=== PATIENT | female | born 1960 | race Caucasian/White ===

== ENCOUNTER 2023-12-13 14:48 | Outpatient (OUT) | payer BC, SELFPAY ==
[2023-12-13 15:35] LABS: Basophils Absolute Auto 0.1 10^3/uL (0.0-0.1); Basophils Percent Auto 0.9 % (0.2-2.0); Eosinophils Absolute Auto 0.2 10^3/uL (0.0-0.7); Eosinophils Percent Auto 2.6 % (0.9-7.0); Hematocrit 44.5 % (36.0-48.0); Hemoglobin 14.6 g/dL (12.0-16.0); Immature Granulocytes Abs Auto 0.01 10^3/uL (0.00-0.03); Immature Granulocytes Pct Auto 0.1 % (0.0-0.5); Lymphocytes Absolute Auto 2.6 10^3/uL (1.2-3.8); Lymphocytes Percent Auto 32.6 % (20.5-60.0); Mean Corpuscular HGB Conc 32.8 g/dL (29.9-35.2); Mean Corpuscular Volume 85.4 fL (81.0-99.0); Mean Platelet Volume 10.4 fL (9.5-13.5); Monocytes Absolute Auto 0.6 10^3/uL (0.3-0.8); Monocytes Percent Auto 7.3 % (1.7-12.0); Neutrophils Absolute Auto 4.4 10^3/uL (1.4-6.5); Neutrophils Percent Auto 56.5 % (43.0-75.0); Platelet Count 228 10^3/uL (150-450); Red Blood Count 5.21 10^6/uL (4.20-5.40); White Blood Count 7.8 10^3/uL (4.0-11.0)
[2023-12-13 15:40] LABS: Estimated Average Glucose 114 mg/dL; Glycohemoglobin A1C 5.6 % (4.5-6.2)
[2023-12-13 16:08] LABS: Alanine Aminotransferase 22 U/L (14-59); Albumin Level 3.5 g/dL (3.4-5.0); Alkaline Phosphatase 73 U/L (46-116); Anion Gap 13.4; Aspartate Amino Transferase 17 U/L (15-37); BUN Creatinine Ratio 21.1; Bilirubin Total 0.4 mg/dL (0.2-1.0); Calcium 9.3 mg/dL (8.5-10.1); Carbon Dioxide 25.8 mmol/L (21.0-32.0); Chloride 106 mmol/L (98-107); Chol HDL Ratio 2.8; Cholesterol 188 mg/dL (<=200); Estimated GFR (African America >60 (>=60); Estimated GFR (Non-African Ame >60 (>=60); Free T3 2.55 pg/mL (2.18-3.98); Globulin 3.4 g/dL; Glucose 78 mg/dL (74-106); HDL Cholesterol 67 mg/dL (40-60); Potassium 4.2 mmol/L (3.5-5.1); Sodium 141 mmol/L (136-145); Thyroid Stimulating Hormone 3.851 uIU/mL (0.358-3.740); Total Protein 6.9 g/dL (6.4-8.2); Triglycerides 53 mg/dL (<=150); VLDL CHOLESTEROL 10.6 mg/dL
[2023-12-15 12:11] LABS: Insulin 8.3 uIU/mL (2.6-24.9)
== END 2023-12-13 14:49 | disposition home or self-care (01) ==
LOC: LAB 14:51
PROVIDERS: PCP Family Medicine; Visit Provider Family Medicine
DX: Z00.00 Encounter for general adult medical examination without abnormal findings (principal); E78.5 Hyperlipidemia, unspecified; R73.09 Other abnormal glucose; D64.9 Anemia, unspecified
CPT/HCPCS: 36415; 80053; 80061; 83036; 83525; 83540; 84436; 84443; 84481; 85025

== ENCOUNTER 2023-12-22 10:40 | Outpatient (OUT) | payer BC, SELFPAY ==
--- OUTSIDE RECORDS SUMMARY | 2023-12-22 10:42 | XMS_ITS | CCD ---
Author Organization [facility] Care Team Providers Care Sales Project Engineer Name Role Phone HORTON ., DR GIANNA Benitez Admitting Unavailable HORTON ., DR GIANNA Benitez Attending Unavailable HOY ., DR XIE Primary Care Unavailable HOY ., DR XIE Consulting Unavailable HORTON ., DR GIANNA Benitez Consulting Unavailable HORTON ., DR GIANNA Benitez Admitting Unavailable HORTON ., DR GIANNA Benitez Attending Unavailable HOY ., DR XIE Primary Care Unavailable HORTON ., DR GIANNA Benitez Consulting Unavailable HORTON ., DR GIANNA Benitez Admitting Unavailable HORTON ., DR GIANNA Benitez Attending Unavailable HOY ., DR XIE Primary Care Unavailable TELLEZ ., [employer] Consulting Unavailable HORTON ., DR GIANNA Benitez Admitting Unavailable HORTON ., DR GIANNA Benitez Attending Unavailable HOY ., DR XIE Primary Care Unavailable HORTON ., DR GIANNA Benitez Consulting Unavailable HORTON ., DR GIANNA Benitez Admitting Unavailable HORTON ., DR GIANNA Benitez Attending Unavailable HOY ., DR XIE Primary Care Unavailable TELLEZ ., [employer] Consulting Unavailable HOY ., DR XIE Admitting Unavailable HOY ., DR XIE Attending Unavailable HOY ., DR XIE Primary Care Unavailable HOY ., DR XIE Consulting Unavailable HOY ., DR XIE Primary Care Unavailable FLOWER ENCARNACION Admitting Unavailable FLOWER ENCARNACION Attending Unavailable FLOWER ENCARNACION Consulting Unavailable ANTONY GRIGSBY Consulting Unavailable HORTON ., DR GIANNA Benitez Admitting Unavailable HORTON ., DR GIANNA Benitez Attending Unavailable HOY ., DR XIE Primary Care Unavailable TELLEZ ., [employer] Consulting Unavailable Problems Active Problems Problem Classification Problem Date Documented Da te Episodic/Chronic Other upper respiratory infections (1 source) Acute sinusitis, unspecified; Translations: [ACUTE SINUSITIS UNSPECIFIED] Onset: 12-05-2022 Episodic Spondylosis; intervertebral disc disorders; other back problems (5 sources) Spondylosis without myelopathy or radiculopathy, cervical region; Translations: [Other cervical disc degeneration, unspecified cervical region] Onset: 05-27-2022 Chronic Unclassified (4 sources) CONTACT W/AND (SUSP) EXPOS COVID-19; Translations: [CONTACT W/AND (SUSP) EXPOS COVID-19] Onset: 12-14-2021 Unclassified (2 sources) COUGH, UNSPECIFIED; Translations: [COUGH, UNSPECIFIED] Onset: 12-14-2021 Past or Other Problems Problem Classification Problem Date Documented Da te Episodic/Chronic Influenza (1 source) Influenza due to other identified influenza virus with other respiratory manifestations; Translations: [FLU D/T OTH ID FLU VIR OTH RSP MANF] Onset: 12-14-2021 Episodic Spondylosis; intervertebral disc disorders; other back problems (4 sources) Spinal stenosis, cervical region; Translations: [Cervicalgia] Onset: 01-04-2022 Episodic Unclassified (1 source) CONTACT W/AND (SUSP) EXPOS COVID-19; Translations: [CONTACT W/AND (SUSP) EXPOS COVID-19] Onset: 12-01-2022 Unclassified (1 source) COUGH, UNSPECIFIED; Translations: [COUGH, UNSPECIFIED] Onset: 12-13-2021 Results Test Name Value Interpretation Reference Range Facil it Physician Referralon 024 Physician Referral [id number] IFF Normal [facility] Physician Referralon 024 Physician Referral [id number] 302 [id number] IFF Normal [facility]on SARS-CoV-2 (COVID-19) RNA JAIMIE+probe Ql (Unsp spec) Not detected Normal NOT DETECTED [facility] Comment on above: Result Comment: When diagnostic testing is negative, the possibility of a false negative should be considered in the context of a patient's recent exposures and the presence of clinical signs and symptoms consistent with SARS-CoV-2. This test is not yet approved or cleared by the [place] FDA. When there are no FDA-approved or cleared tests available, and other criteria are met, FDA can make tests available under an emergency access mechanism called an Emergency Use Authorization (EUA). The EUA for this test is supported by the [place] of Health and Human Service's declaration that circumstances exist to justify the emergency use of in vitro diagnostics for the detection and/or diagnosis of the virus that causes COVID-19. This EUA will remain in effect for the duration of the COVID-19 declaration justifying emergency of IVDs, unless it is terminated or revoked by the FDA (after which the test may no longer be used). Performed By: #### C VDTB #### [facility] [address] [place] [address] Dr. Joss De La Rosa CBC AUTO DIFFon 12-13-2021 BASO # 0.0 103/ul Normal 0.0-0.1 [facility] Comment on above: Performed By: #### C BC #### [facility] [address] [place] [address] Dr. Joss De La Rosa Basophils/100 WBC (Bld) 0.9 % Normal 0.2-2.0 [facility] Comment on above: Performed By: #### C BC #### [facility] [address] [place] [address] Dr. Joss De La Rosa EO # 0.2 103/ul Normal 0.0-0.7 [facility] Comment on above: Performed By: #### C BC #### [facility] [address] [place] [address] Dr. Joss De La Rosa Eosinophils/100 WBC (Bld) 4.4 % Normal 0.9-7.0 [facility] Comment on above: Performed By: #### C BC #### [facility] [address] [place] [address] Dr. Joss De La Rosa Erythrocyte distribution width (RBC) [Ratio] 13.1 % Normal 11.0-15.0 [facility] Comment on above: Performed By: #### C BC #### [facility] [address] [place] [address] Dr. Joss De La Rosa Hematocrit (Bld) [Volume fraction] 44.9 % Normal 36.0-48.0 [facility] Comment on above: Performed By: #### C BC #### [facility] [address] [place] [address] Dr. Joss De La Rosa Hemoglobin (Bld) [Mass/Vol] 14.6 g/dL Normal 12.0-16.0 [facility] Comment on above: Performed By: #### C BC #### [facility] [address] [place] [address] Dr. Joss De La Rosa IG # 0.00 10e3/ul Normal 0.00-0.03 [facility] Comment on above: Performed By: #### C BC #### [facility] [address] [place] [address] Dr. Joss De La Rosa IG % 0.0 % Normal 0.0-0.5 [facility] Comment on above: Performed By: #### C BC #### [facility] [address] [place] [address] Dr. Joss De La Rosa LYMPH # 1.6 103/ul Normal 1.2-3.8 [facility] Comment on above: Performed By: #### C BC #### [facility] [address] [place] [address] Dr. Joss De La Rosa Lymphocytes/100 WBC (Bld) 37.1 % Normal 20.5-60.0 [facility] Comment on above: Performed By: #### C BC #### [facility] [address] [place] [address] Dr. Joss De La Rosa MANUAL DIFF REQ NO Normal [facility] Comment on above: Performed By: #### C BC #### [facility] [address] [place] [address] Dr. Joss De La Rosa MCH (RBC) [Entitic mass] 27.8 pg Normal 26.7-34.0 [facility] Comment on above: Performed By: #### C BC #### [facility] [address] [place] [address] Dr. Joss De La Rosa MCHC (RBC) [Mass/Vol] 32.5 g/dL Normal 29.9-35.2 [facility] Comment on above: Performed By: #### C BC #### [facility] [address] [place] [address] Dr. Joss De La Rosa MCV (RBC) [Entitic vol] 85.5 fL Normal 81.0-99.0 [facility] Comment on above: Performed By: #### C BC #### [facility] [address] [place] [address] Dr. Joss De La Rosa MONO # 0.5 103/ul Normal 0.3-0.8 [facility] Comment on above: Performed By: #### C BC #### [facility] [address] [place] [address] Dr. Joss De La Rosa Monocytes/100 WBC (Bld) 11.8 % Normal 1.7-12.0 [facility] Comment on above: Performed By: #### C BC #### [facility] [address] [place] [address] Dr. Joss De La Rosa NEUT # 2.0 103/ul Normal 1.4-6.5 [facility] Comment on above: Performed By: #### C BC #### [facility] [address] [place] [address] Dr. Joss De La Rosa Neutrophils/100 WBC (Bld) 45.8 % Normal 43.0-75.0 [facility] Comment on above: Performed By: #### C BC #### [facility] [address] [place] [address] Dr. Joss De La Rosa Platelet mean volume (Bld) [Entitic vol] 10.2 fL Normal 9.5-13.5 [facility] Comment on above: Performed By: #### C BC #### [facility] [address] [place] [address] Dr. Joss De La Rosa PLT 237 103/ul Normal 150-450 [facility] Comment on above: Performed By: #### C BC #### [facility] [address] [place] [address] Dr. Joss De La Rosa RBC 5.25 106/ul Normal 4.20-5.40 [facility] Comment on above: Performed By: #### C BC #### [facility] [address] [place] [address] Dr. Joss De La Rosa WBC 4.3 103/ul Normal 4.0-11.0 [facility] Comment on above: Performed By: #### C BC #### [facility] [address] [place] [address] Dr. Joss De La Rosa Covid-19 PCR ([facility])on 12-01 SARS-CoV-2 (COVID-19) RNA JAIMIE+probe Ql (Unsp spec) Not detected Normal NOT DETECTED [facility] Comment on above: Result Comment: This test is not yet approved or cleared by the [place] FDA. When there are no FDA-approved or cleared tests available, and other criteria are met, FDA can make tests available under an emergency access mechanism called an Emergency Use Authorization (EUA). The EUA for this test is supported by the [place] of Health and Human Service's (HHS's) declaration that circumstances exist to justify the emergency use of in vitro diagnostics for the detection and/or diagnosis of the virus that causes COVID-19. This EUA will remain in effect (meaning this test can be used) for the duration of the COVID-19 declaration justifying emergency of IVDs, unless it is terminated or revoked by FDA (after which the test may no longer be used). When diagnostic testing is negative, the possibility of a false negative should be considered in the context of a patient's recent exposures and the presence of clinical signs and symptoms consistent with SARS-CoV-2. Performed By: #### C VDTB #### [facility] [address] [place] [address] Dr. Joss De La Rosa INFLUENZA A AND B AGon 12-13 [facility] SEE BELOW Normal [facility] Comment on above: Result Comment: Nega tive for Flu B protein antigen. Infection due to Flu B cannot be ruled out. Flu B antigen in the sample may be below the detection limit of the test. Performed By: #### I NFLUAB #### [facility] [address] [place] [address] Dr. Joss De La Rosa INFLUENZA A AG Positive Abnormal NEGATIVE SEE COMMENT [facility] Comment on above: Performed By: #### I NFLUAB #### [facility] [address] [place] [address] Dr. Joss De La Rosa INFLUENZA B AG Negative Normal NEGATIVE SEE COMMENT [facility] Comment on above: Performed By: #### I NFLUAB #### [facility] [address] [address] [address] Joss De La Rosa INFLUPOSH SEE BELOW Normal [facility] Comment on above: Result Comment: NOTE : Live attenuated influenzae vaccine viruses can cause a positive result for a rapid influenza diagnostic test if administered up to 7 days prior to rapid testing. Performed By: #### I NFLUAB #### [facility] [address] [address] [address] Joss De La Rosa INTERNAL CONTROLS Within Normal Limits Normal Wi thin Normal Limits [facility] Comment on above: Performed By: #### I NFLUAB #### [facility] [address] [address] [address] Joss De La Rosa PROF 14(COMP METB)on 022 Albumin [Mass/Vol] 3.3 g/dL Critically low 3.5-5.0 [facility] Comment on above: Performed By: #### C MP #### [facility] [address] [place] [address] Dr. Joss De La Rosa Albumin/Globulin [Mass ratio] 1.0 {ratio} Normal [facility] Comment on above: Performed By: #### C MP #### [facility] [address] [address] [address] Joss De La Rosa ALP [Catalytic activity/Vol] 69 U/L Normal 38-126 [facility] Comment on above: Performed By: #### C MP #### [facility] [address] [address] [address] Joss De La Rosa ALT [Catalytic activity/Vol] 26 U/L Normal 9-52 [facility] Comment on above: Performed By: #### C MP #### [facility] [address] [address] [address] Joss De La Rosa Anion gap [Moles/Vol] 12.0 mmol/L Normal [facility] Comment on above: Performed By: #### C MP #### [facility] [address] [place] [address] Dr. Joss De La Rosa AST [Catalytic activity/Vol] 15 U/L Normal 14-36 [facility] Comment on above: Performed By: #### C MP #### [facility] [address] [address] [address] Joss De La Rosa Bilirubin [Mass/Vol] 0.2 mg/dL Normal 0.2-1.3 [facility] Comment on above: Performed By: #### C MP #### [facility] [address] [address] [address] Joss De La Rosa Calcium [Mass/Vol] 8.3 mg/dL Critically low 8.4-10.2 [facility] Comment on above: Performed By: #### C MP #### [facility] [address] [address] [address] Joss De La Rosa Chloride [Moles/Vol] 102 mmol/L Normal 98-107 [facility] Comment on above: Performed By: #### C MP #### [facility] [address] [address] [address] Joss De La Rosa CO2 [Moles/Vol] 27.4 mmol/L Normal 22.0-30.0 [facility] Comment on above: Performed By: #### C MP #### [facility] [address] [address] [address] Joss De La Rosa Creatinine [Mass/Vol] 0.97 mg/dL Normal 0.52-1.04 [facility] Comment on above: Performed By: #### C MP #### [facility] [address] [address] [address] Joss De La Rosa EGFR-AF DOMINICAN >60 Normal >=60 [facility] Comment on above: Performed By: #### C MP #### [facility] [address] [address] [address] Joss De La Rosa EGFR-NON AF DOMINICAN 59 mL/min/1.73m2 Critically low >=60 [facility] Comment on above: Performed By: #### C MP #### [facility] [address] [address] [address] Joss De La Rosa Globulin (S) [Mass/Vol] 3.4 g/dL Normal [facility] Comment on above: Performed By: #### C MP #### [facility] [address] [address] [address] Joss De La Rosa Glucose [Mass/Vol] 105 mg/dL Normal 74-106 [facility] Comment on above: Performed By: #### C MP #### [facility] [address] [address] [address] Joss De La Rosa Potassium [Moles/Vol] 3.4 mmol/L Normal 3.4-5.0 [facility] Comment on above: Performed By: #### C MP #### [facility] [address] [address] [address] Joss De La Rosa Protein [Mass/Vol] 6.7 g/dL Normal 6.1-8.2 [facility] Comment on above: Performed By: #### C MP #### [facility] [address] [address] [address] Joss De La Rosa Sodium [Moles/Vol] 138 mmol/L Normal 137-145 [facility] Comment on above: Performed By: #### C MP #### [facility] [address] [address] [address] Joss De La Rosa Urea nitrogen [Mass/Vol] 15.0 mg/dL Normal 7.0-17.0 [facility] Comment on above: Performed By: #### C MP #### [facility] [address] [address] [address] Joss De La Rosa Urea nitrogen/Creatinin e [Mass ratio] 15.5 mg/mg Normal [facility] Comment on above: Performed By: #### C MP #### [facility] [address] [address] [address] Joss De La Rosa XR CHEST 1 Von 12-13-2021 XR CHEST 1 V EXAM: XR CHEST 1 V HISTORY: COUGH COMPARISON: X-ray performed . TECHNIQUE: AP portable upright view of the chest is obtained. FINDINGS: The cardiomediastinal silhouette is nonenlarged. Pulmonary vascular markings are within normal limits. There is no focal airspace consolidation. The costophrenic angles are clear. No pneumothorax. The osseous structures appear grossly intact. IMPRESSION: No acute cardiopulmonary process. Electronically authenticated by: ANTONY GRIGSBY Date: 2021-12-13 03:22 Normal [facility] Encounters Encounter Date Encounter Type Care Provider Facility Start: 12-12-2023 ambulatory Facility:[facility] Start: 12-01-2022 End: 12-01-[address] ANNE-MARIE SOUZA . Facility:[facility] Start: 05-27-2022 End: 05-28-[address] GIANNA HORTON . Facility:[facility] Start: 05-04-2022 End: 05-04-[address] GIANNA HORTON . Facility:[facility] Start: 04-13-2022 End: 04-14-[address] GIANNA HORTON . Facility:[facility] Start: 02-04-[address] GIANNA HORTON . Faci lity:[facility] Start: 01-19-[address] GIANNA HORTON . Faci lity:[facility] Start: 12-31-2021 End: 01-01-[address] GIANNA HORTON . Facility:[facility] Start: 12-13-2021 End: 12-13-[address] ANNE-MARIE SOUZA . Facility:[facility] Payers Date Payer Category Payer Unknown [id number] 1960 Unknown [id number] 2.16.84 [id number] 1960 Unknown [id number] 2.16.84 [id number] 1960 Unknown [id number] 2.16.84 [id number] 1960 Unknown [id number] 2.16.84 [id number] 1960 Unknown [id number] 2.16.84 [id number] 1962 Unknown [id number] 2.16.84 [id number] 1962 Unknown [id number] 2.16.84 [id number] 1962 Unknown [id number] 2.16.84 [id number] 1962 Unknown [id number] 2.16.8 [id number] 1959 Unknown [id number] Consultation note 05-27-2022 Note Date & Type Note Facility 05-27-2022 Note CONSULTATION CONSULTATION DATE: 05/27/2022 HISTORY OF PRESENT ILLNESS: This is a pleasant, 61-year-old female returning to the clinic status post #1 bilateral MBB of C5, C6 and C7, T1 completed on 05/04/2022. This afforded her 90% relief for one day and 80% relief for two weeks following. 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 Today, she rates her pain 2/10, describes it as intermittent, stabbing depending on position. Twisting, turning, pushing, pulling, bending and lifting aggravate her pain. She currently uses a menthol heat rub and a heating pad p.r.n. when her activity is increased. She denies any vasomotor changes. Patient's REVIEW OF SYSTEMS / PAST MEDICAL HISTORY / ALLERGIES and IMAGES have been reviewed and they are noted on the chart. PHYSICAL EXAM: VITAL SIGNS: Blood pressure 175/95, heart rate is 71. Temperature is 97.9. She is 5'6 , weighs 125 kg. GENERAL APPEARANCE: Pleasant, appropriate, in no acute distress. FOCUSED EXAM - NECK: Range of motion is guarded in lateral rotation and flexion/extension. Reproduction of spinal axial pain to direct compression along the posterior elements of the cervical facets of C5, C6 and C7, T1. Fullness palpated as well, indicative of facet arthropathy, cervical spondylosis. Trapezius muscles are taut but non-spasmodic. MUSCULOSKELETAL: Motor is intact to bilateral upper extremities, 4/5. No vasomotor weakness noted. Muscle tone is good. NEUROLOGICAL: +2 bilateral brachioradialis and triceps reflexes. Radicular sensory is intact. IMPRESSION: Cervical spondylosis, cervical degenerative disc disease, cervical spinal canal stenosis. PLAN: We will move forward to authorize #2 bilateral MBB of C5, C6 and C7, T1. Education was given regarding starting a multivitamin in addition to magnesium glycinate 400 mg daily. She will get a U-Tox in the office today. Patient states her tramadol use is intermittent; therefore, for her next refill, we will dispense it a daily p.r.n. 50 mg. Patient is agreement with the plan of care, would like to move forward. She will be followed up in the office post procedure. [facility] Consultation note 05-27-2022 Note Date & Type Note Facility 05-27-2022 Note PAIN MANAGEMENT CONS ULTATION CONSULTATION DATE: 05/27/2022 ADDENDUM FOR NECK EXAM: At rest, the patient has 2 out of 10 pain with activity. Her pain goes to a 7 out of 10 with twisting, pushing, pulling, lifting, bending and physical activity aggravate her pain. Range of motion is guarded in lateral rotation and flexion/extension. Reproduction of spinoaxial pain noted to direct palpation over the lower cervical facets, fullness is palpated, indicative of ill facet arthropathy, cervical spondylosis of C5, C6 and C7, T1. Trachea is midline. Cervical, trapezius and splenius capitis muscles are taut but non-spasmodic. PLAN: The patient would greatly benefit from progressing to a #2 bilateral MBB of C5, C6 and C7, T1 at this time with the hopes of completing the rhizotomy series. [facility] Consultation note 04-13-2022 Note Date & Type Note Facility 04-13-2022 Note CONSULTATION CONSULTATION DATE: 04/13/2022 CHIEF COMPLAINT: Cervical pain. HISTORY OF PRESENT ILLNESS: This is a 61-year-old female who was remotely seen in the Pain Clinic initially in November of 2021. The patient had attended physical therapy, cervical traction, and was followed up in office a month later. At that time, the patient was scheduled to have cervical medial branch block for diagnostic purposes, under fluoroscopy. The patient has an MRI which shows multiple bulging discs and cervical spondylosis, as stated in the past. The patient, unfortunately, was denied treatment by Jenny, stating that I was not participating in their insurance, which was incorrect. This has since then been clarified. The patient reports her pain at an 8/10; a sharp, shooting, tingling pain. Activity such as twisting, pushing, lying down, housework, lifting, ADLs, activities aggravate the patient's pain. Heat mitigates the patient's pain. The patient was performing cervical traction; however, recently has moved in with her parents to help take care of them. 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 The patient takes Motrin on a p.r.n. basis, depending on her activity level. The patient's PAST MEDICAL HISTORY / SURGICAL HISTORY / REVIEW OF SYSTEMS are noted on the chart, along with the MEDICATION LIST / ALLERGIES and the MRI which was re-reviewed in office today. PHYSICAL EXAMINATION: GENERAL: Upon physical examination, this is a pleasant, cooperative female who has intermittent grimacing pain and guarded movements. VITAL SIGN: The patient's blood pressure is 154/87 with a heart rate of 80. At a height of 5'6 , the patient weighs 125 kg. FOCUSED EVALUATION: The patient had significant jump response to extension, compression, direct palpation along the posterior elements along her cervical spine. The patient has arthrosis that is defined on the cervical MRI. UPPER EXTREMITIES: No clubbing or cyanosis. MUSCULOSKELETAL: Intact in the upper extremity at 5/5. Rn Traveling strength is maintained. Interossei are maintained. NEUROLOGICALLY: No hypoesthesia is noted on to the patient. PSYCHIATRICALLY: The patient is distraught and is stressed. IMPRESSION: Current working diagnosis on the patient is multiple bulging cervical discs, cervical spinal canal stenosis, cervical spondylosis at C5-6 and C7-T1 facet, cervical muscle spasm. PLAN: The patient is to continue with the heat rub to her cervical spine. The patient was encouraged to restart the home cervical traction. In the interim, the patient will be re-prescribed baclofen 10 mg p.o. daily, along with tramadol 50 mg up to b.i.d. a day. The patient will be rescheduled for diagnostic cervical medial branch block at the level of C5-C6 and C7-C8 to cover the C7-T1 facet. The patient understands and would like to proceed. CC: Anne-Marie Souza M.D. [facility] Signed and Approved by: DR GIANNA HORTON . 04/20/2022 09:28:00 [facility] Consultation note 12-31-2021 Note Date & Type Note Facility 12-31-2021 Note CONSULTATION PAIN MANAGEMENT CONSULTATION This is a pleasant 61-year-old female who returning to the clinic following required physical therapy prior to authorizing for cervical MBB. She was last seen by Dr. Horton on 11/03/2021 which at that time she was ordered #1 bilateral MBB to C5, C6 and C7, C8 which her insurance required her to complete at least 10 visits of physical therapy. The patient has completed 8 visits thus far in which she will finish her last two visits early next week. She states physical therapy helps during the actual therapy appointment but once leaving her pain goes back to baseline which is a 4-5 out of 10 and sharp, achy pain. She does have decreased range of motion in lateral rotation and she has been applying ice daily to her neck. She recently has recovered from influenza A and she feels that has hindered some of her progress as well. Activities that aggravate her pain are lateral neck rotation, reaching over her head, ADLs, housework and lifting. Medications include Baclofen 10 mg q.h.s. and Motrin p.r.n. REVIEW OF SYSTEMS, PAST MEDICAL HISTORY, ALLERGIES AND IMAGES: Have been reviewed and noted in the chart. PHYSICAL EXAM: VITAL SIGNS: Blood pressure 148/82, heart rate is 83, temperature is 97.5. Height is 5'6 , weighs 131 kg. GENERAL APPEARANCE: Pleasant, appropriate and in no acute distress. FOCUSED EXAM: NECK: Trachea is midline, lateral rotation is within functional limits but somewhat guarded rotating to the right. Flexion and extension somewhat guarded as well but motion is functional. Reproduction of the patient's spinal axial pain noted to direct compression along the cervical elements of the facets of C5, C6 and C7, C8 with slight radiation to subscapular area. MUSCULOSKELETAL: Motor is intact to the upper extremity, 5 out of 5 strength bilaterally. NEUROLOGICAL: Radicular sensory is intact; negative polyneuropathy. DIAGNOSIS: Cervical spondylosis, cervical degenerative disk, cervicalgia and thoracic pain. PLAN: The patient is to complete her last two physical therapy appointments and we will work to gain authorizations for #1 cervical MBB to C5, C6 and C7, C8. The patient was educated to stop using ice but to switch to a menthol heat rub and to use warm, most heat to her neck daily. The patient states understanding and agreed to the plan of care. She will be followed up in the office post procedure. [facility] Signed and Approved by: EDNA TELLEZ . 01/07/2022 16:20:00 [facility] Summary Purpose Family History No Family History Records FoundNo Family History Records Found Advance Directives No Advanced Directives Records FoundNo Advanced Directives Records Found Additional Source Comments INFORMATION SOURCE (unrecogn ized section and content) DATE CREATED AUTHOR 12/07/2022 [facility] pital DATE CREATED AUTHOR AUTHOR'S SHANNA BASS 12/16/2023 [facility] FOR RECORDS PERTAINING TO PATIENTS WHO ARE OR HAVE BEEN ENROLLED IN A CHEMICAL DEPENDENCY/SUBSTANCEABUSE PROGRAM, SOME INFORMATION MAY BE OMITTED. This clinical summary was aggregated from multiple sources. Caution should be exercised in using it in the provision of clinical care. This summary normalizes information from multiple sources, and as a consequence, information in this document may materially change the coding, format and clinical context of patient data. In addition, data may be omitted in some cases. CLINICAL DECISIONS SHOULD BE BASED ON THE PRIMARY CLINICAL RECORDS. [facility]. provides no warranty or guarantee of the accuracy or completeness of information in this document.
--- NOTE | 2023-12-22 10:43 | MM_ITS ---
Patient Name: SHAQUILLE SMALLS MR#: [id number] : 1960 Exam Date: 12/22/2023 Ordering Doctor: DR Stephan Souza . RADIOLOGY REPORT PROCEDURE: MM TOMOSYNTHESIS SCREENING BI COMPARISON: MG MAMM SCREEN 3D JOSE ALEJANDRO CAD, 11/18/2021. MG MAMM JOSE ALEJANDRO SCRN W CAD DIG, 03/11/2014. INDICATIONS: Screening for malignant neoplasm Calculator Name NCI Breast Cancer Risk Assessment Tool 5 Year Breast Cancer Risk 1.50% Lifetime Breast Cancer Risk 7.00% Personal Breast Cancer No Personal Ovarian Cancer No Treatments None Family Cancers Mother with cevical cancer at age 30; Father with colon cancer at age ~70. LOCATION: [facility] BREAST COMPOSITION: Scattered areas fibroglandular density. FINDINGS: DIAGNOSTIC CATEGORY 2--BENIGN FINDING: RIGHT BREAST: No significant suspicious finding. Stable, chronic benign-appearing upper-outer quadrant lymph node. No significant change has occurred. LEFT BREAST: No significant suspicious finding. No significant change has occurred. RECOMMENDATIONS: ROUTINE MAMMOGRAM AND CLINICAL EVALUATION IN 12 MONTHS. PLEASE NOTE: A NORMAL MAMMOGRAM DOES NOT EXCLUDE THE POSSIBILITY OF BREAST CANCER. A CLINICALLY SUSPICIOUS PALPABLE LUMP SHOULD BE BIOPSIED. Dictated by: Gabriele Belle M.D. on 12/23/2023 at 13:34 Approved by: Gabriele Belle M.D. on 12/23/2023 at 13:37
== END 2023-12-22 10:41 | disposition home or self-care (01) ==
LOC: MAMMO 10:40
PROVIDERS: PCP Family Medicine; Visit Provider Family Medicine
DX: Z12.31 Encounter for screening mammogram for malignant neoplasm of breast (principal); Z80.0 Family history of malignant neoplasm of digestive organs; Z80.49 Family history of malignant neoplasm of other genital organs
CPT/HCPCS: 77063; 77067

== ENCOUNTER 2023-12-25 14:16 | Emergency (ER) | payer BC, SELFPAY ==
[2023-12-25] VITALS (10 sets, daily range): BP systolic 140–174; BP diastolic 92–106; PULSE 69–113; RESP 17–25; TEMP 37; O2SAT 94–98; BMI 43.6
--- OUTSIDE RECORDS SUMMARY | 2023-12-25 14:20 | XMS_ITS | CCD ---
Author Organization [facility] Care Team Providers Care Supervisor Ticket Sales Name Role Phone HORTON ., DR GIANNA [...] Care Unavailable TELLEZ ., [employer] Unavailable Sanjiv CACERES Attending Unavailable Anne-Marie Marin Referring Unavailable Problems Active Problems Problem Classification Problem [...] Test Name Value Interpretation Reference Range Facil ity Physician Referralon 024 Physician Referral [id number] 303 [id number] IFF Normal [facility] Physician Referralon 024 Physician Referral [id number] 302 [id number]#1.00T IFF Normal [facility]on SARS-CoV-2 (COVID-19) RNA JAIMIE+probe Ql (Unsp spec) Not detected Normal NOT DETECTED [facility] Comment on above: Result Comment: When diagnostic [...] for this test is supported by the [place] of Health and Human Service's declaration that [...] used). Performed By: #### C VDTB #### [facility] [address] [place] [address] Dr. Joss De La Rosa CBC AUTO DIFFon 12-13-2021 BASO # 0.0 103/ul Normal 0.0-0.1 [facility] Comment on above: Performed By: #### C BC #### [facility] [address] [place] [address] Dr. Joss De La Rosa Basophils/100 WBC (Bld) 0.9 % Normal 0.2-2.0 [facility] Comment on above: Performed By: #### C BC #### [facility] [address] [place] [address] Dr. Joss De La Rosa EO # 0.2 103/ul Normal 0.0-0.7 [facility] Comment on above: Performed By: #### C BC #### [facility] [address] [place] [address] Dr. Joss De La Rosa Eosinophils/100 WBC (Bld) 4.4 % Normal 0.9-7.0 [facility] Comment on above: Performed By: #### C BC #### [facility] [address] [place] [address] Dr. Joss De La Rosa Erythrocyte distribution width (RBC) [Ratio] 13.1 % Normal 11.0-15.0 [facility] Comment on above: Performed By: #### C BC #### [facility] [address] [place] [address] Dr. Joss De La Rosa Hematocrit (Bld) [Volume fraction] 44.9 % Normal 36.0-48.0 [facility] Comment on above: Performed By: #### C BC #### [facility] [address] [place] [address] Dr. Joss De La Rosa Hemoglobin (Bld) [Mass/Vol] 14.6 g/dL Normal 12.0-16.[address] [facility] Comment on above: Performed By: #### C BC #### [facility] [address] [place] [address] Dr. Joss De La Rosa IG # 0.00 10e3/ul Normal 0.00-0.[address] [facility] Comment on above: Performed By: #### C BC #### [facility] [address] [place] [address] Dr. Joss De La Rosa IG % 0.0 % Normal 0.0-0.[address] [facility] Comment on above: Performed By: #### C BC #### [facility] [address] [place] [address] Dr. Joss De La Rosa LYMPH # 1.6 103/ul Normal 1.2-3.8 [facility] Comment on above: Performed By: #### C BC #### [facility] [address] [place] [address] Dr. Joss De La Rosa Lymphocytes/100 WBC (Bld) 37.1 % Normal 20.5-60.[address] [facility] Comment on above: Performed By: #### C BC #### [facility] [address] [place] [address] Dr. Joss De La Rosa MANUAL DIFF REQ NO Normal [facility] Comment on above: Performed By: #### C BC #### [facility] [address] [place] [address] Dr. Joss De La Rosa MCH (RBC) [Entitic mass] 27.8 pg Normal 26.7-34.0 [facility] Comment on above: Performed By: #### C BC #### [facility] [address] [place] [address] Dr. Joss De La Rosa MCHC (RBC) [Mass/Vol] 32.5 g/dL Normal 29.9-35.2 [facility] Comment on above: Performed By: #### C BC #### [facility] [address] [place] [address] Dr. Joss De La Rosa MCV (RBC) [Entitic vol] 85.5 fL Normal 81.0-99.[address] [facility] Comment on above: Performed By: #### C BC #### [facility] [address] [place] [address] Dr. Joss De La Rosa MONO # 0.5 103/ul Normal 0.3-0.[address] [facility] Comment on above: Performed By: #### C BC #### [facility] [address] [place] [address] Dr. Joss De La Rosa Monocytes/100 WBC (Bld) 11.8 % Normal 1.7-12.[address] [facility] Comment on above: Performed By: #### C BC #### [facility] [address] [place] [address] Dr. Joss De La Rosa NEUT # 2.0 103/ul Normal 1.4-6.[address] [facility] Comment on above: Performed By: #### C BC #### [facility] [address] [place] [address] Dr. Joss De La Rosa Neutrophils/100 WBC (Bld) 45.8 % Normal 43.0-75.[address] [facility] Comment on above: Performed By: #### C BC #### [facility] [address] [place] [address] Dr. Joss De La Rosa Platelet mean volume (Bld) [Entitic vol] 10.2 fL Normal 9.5-13.5 [facility] Comment on above: Performed By: #### C BC #### [facility] [address] [place] [address] Dr. Joss De La Rosa PLT 237 103/ul Normal 150-450 [facility] Comment on above: Performed By: #### C BC #### [facility] [address] [place] [address] Dr. Joss De La Rosa RBC 5.25 106/ul Normal 4.20-5.40 [facility] Comment on above: Performed By: #### C BC #### [facility] [address] [place] [address] Dr. Joss De La Rosa WBC 4.3 103/ul Normal 4.0-11.0 [facility] Comment on above: Performed By: #### C BC #### [facility] [address] [place] [address] Dr. Joss De La Rosa Covid-19 PCR ([facility])on 12-01 SARS-CoV-2 (COVID-19) RNA JAIMIE+probe Ql (Unsp spec) Not detected Normal NOT DETECTED [facility] Comment on above: Result Comment: This test is not yet approved or cleared by the [place] FDA. When there are no FDA-approved or cleared tests available, and other criteria are met, FDA can make tests available under an emergency access mechanism called an Emergency Use Authorization (EUA). The EUA for this test is supported by the [place] of Health and Human Service's (HHS's) declaration [...] SARS-CoV-2. Performed By: #### C VDTB #### [facility] [address] [place] [address] Dr. Joss De La Rosa INFLUENZA A AND B AGon 12-13 [facility] SEE BELOW Normal [facility] Comment on above: Result Comment: Nega tive for Flu B protein antigen. Infection due to Flu B cannot be ruled out. Flu B antigen in the sample may be below the detection limit of the test. Performed By: #### I NFLUAB #### [facility] [address] [place] [address] Dr. Joss De La Rosa INFLUENZA A AG Positive Abnormal NEGATIVE SEE COMMENT [facility] Comment on above: Performed By: #### I NFLUAB #### [facility] [address] [place] [address] Dr. Joss De La Rosa INFLUENZA B AG Negative Normal NEGATIVE SEE COMMENT [facility] Comment on above: Performed By: #### I NFLUAB #### [facility] [address] [place] [address] Dr. Joss De La Rosa INFLUPOSH SEE BELOW Normal [facility] Comment on above: Result Comment: NOTE : Live attenuated influenzae vaccine viruses can cause a positive result for a rapid influenza diagnostic test if administered up to 7 days prior to rapid testing. Performed By: #### I NFLUAB #### [facility] [address] [place] [address] Dr. Joss De La Rosa INTERNAL CONTROLS Within Normal Limits Normal Wi thin Normal Limits [facility] Comment on above: Performed By: #### I NFLUAB #### [facility] [address] [place] [address] Dr. Joss De La Rosa PROF 14(COMP METB)on 022 Albumin [Mass/Vol] 3.3 g/dL Critically low 3.5-5.0 [facility] Comment on above: Performed By: #### C MP #### [facility] [address] [place] [address] Dr. Joss De La Rosa Albumin/Globulin [Mass ratio] 1.0 {ratio} Normal [facility] Comment on above: Performed By: #### C MP #### [facility] [address] [place] [address] Dr. Joss De La Rosa ALP [Catalytic activity/Vol] 69 U/L Normal 38-[address] [facility] Comment on above: Performed By: #### C MP #### [facility] [address] [place] [address] Dr. Joss De La Rosa ALT [Catalytic activity/Vol] 26 U/L Normal 9-[address] [facility] Comment on above: Performed By: #### C MP #### [facility] [address] [place] [address] Dr. Joss De La Rosa Anion gap [Moles/Vol] 12.0 mmol/L Normal [facility] Comment on above: Performed By: #### C MP #### [facility] [address] [place] [address] Dr. Joss De La Rosa AST [Catalytic activity/Vol] 15 U/L Normal 14-[address] [facility] Comment on above: Performed By: #### C MP #### [facility] [address] [address] [address] Joss De La Rosa Bilirubin [Mass/Vol] 0.2 mg/dL Normal 0.2-1.[address] [facility] Comment on above: Performed By: #### C MP #### [facility] [address] [address] [address] Joss De La Rosa Calcium [Mass/Vol] 8.3 mg/dL Critically low 8.4-10.2 [facility] Comment on above: Performed By: #### C MP #### [facility] [address] [place] [address] Dr. Joss De La Rosa Chloride [Moles/Vol] 102 mmol/L Normal 98-[address] [facility] Comment on above: Performed By: #### C MP #### [facility] [address] [address] [address] Joss De La Rosa CO2 [Moles/Vol] 27.4 mmol/L Normal 22.0-30.0 [facility] Comment on above: Performed By: #### C MP #### [facility] [address] [place] [address] Dr. Joss De La Rosa Creatinine [Mass/Vol] 0.97 mg/dL Normal 0.52-1.[address] [facility] Comment on above: Performed By: #### C MP #### [facility] [address] [address] [address] Joss De La Rosa EGFR-AF CROATIAN >60 Normal >=60 [facility] Comment on above: Performed By: #### C MP #### [facility] [address] [address] [address] Joss De La Rosa EGFR-NON AF CROATIAN 59 mL/min/1.73m2 Critically low >=[address] [facility] Comment on above: Performed By: #### C MP #### [facility] [address] [place] [address] Dr. Joss De La Rosa Globulin (S) [Mass/Vol] 3.4 g/dL Normal [facility] Comment on above: Performed By: #### C MP #### [facility] [address] [address] [address] Joss De La Rosa Glucose [Mass/Vol] 105 mg/dL Normal 74-106 [facility] Comment on above: Performed By: #### C MP #### [facility] [address] [address] [address] Joss De La Rosa Potassium [Moles/Vol] 3.4 mmol/L Normal 3.4-5.[address] [facility] Comment on above: Performed By: #### C MP #### [facility] [address] [address] [address] Joss De La Rosa Protein [Mass/Vol] 6.7 g/dL Normal 6.1-8.2 [facility] Comment on above: Performed By: #### C MP #### [facility] [address] [address] [address] Joss De La Rosa Sodium [Moles/Vol] 138 mmol/L Normal 137-145 [facility] Comment on above: Performed By: #### C MP #### [facility] [address] [address] [address] Joss De La Rosa Urea nitrogen [Mass/Vol] 15.0 mg/dL Normal 7.0-17.[address] [facility] Comment on above: Performed By: #### C MP #### [facility] [address] [address] [address] Joss De La Rosa Urea nitrogen/Creatinin e [Mass ratio] 15.5 mg/mg Normal [facility] Comment on above: Performed By: #### C MP #### [facility] [address] [address] [address] Joss De La Rosa XR CHEST [...] by: ANTONY GRIGSBY Date: 2021-12-13 03:[address] [facility] Encounters Encounter Date Encounter Type Care Provider Facility Start: 01-11-2024 ambulatory Sanjiv OROURKEPooja Facility :[facility] Start: 12-12-2023 ambulatory Sanjiv CACERES Facility:[facility] Start: 12-01-2022 End: 12-01-[address] ANNE-MARIE MARIN . Facility:[facility] Start: 05-27-2022 End: 05-28-2022 ambulatory [...] Start: 12-13-2021 End: 12-13-[address] ANNE-MARIE MARIN . Facility: Payers Date Payer Category Payer Unknown [id number] 1960 Unknown [id number] 2.16.84 [id number] 1960 Unknown [id number] 2.16.84 [id number] 1960 Unknown [id number] 2.16.84 [id number] 1960 Unknown [id number] 2.16.84 [id number] 1960 Unknown [id number] 2.16.84 [id number] 1960 Unknown [id number] 2.16.84 [id number] 1960 Unknown [id number] 2.16.84 [id number] 1960 Unknown [id number] 2.16.84 [id number] 1960 Unknown [id number] 2.16.8 [id number] 1960 Unknown [id number] 2.16.8 [id number] 1959 Unknown [id number] Consultation note 05-27-2022 Note Date & Type [...] to be more active with working with [employer], work and physical activity at home. Today, [...] up in the office post procedure. [facility] Consultation note 05-27-2022 Note Date & Type [...] hopes of completing the rhizotomy series. [facility] Consultation note 04-13-2022 Note Date & Type [...] Intact in the upper extremity at 5/5. 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 Interossei are maintained. NEUROLOGICALLY: [...] and would like to proceed. CC: Anne-Marie Marin M.D. [facility] Signed and Approved by: DR GIANNA HORTON . 04/20/2022 09:28:00 [facility] Consultation note 12-31-2021 Note Date & Type [...] followed up in the office post procedure. [facility] Signed and Approved by: EDNA TELLEZ . 01/07/2022 16:20:00 [facility] Summary Purpose Family History No Family History Records FoundNo Family History Records Found Advance Directives No Advanced Directives Records FoundNo Advanced Directives Records Found Additional Source Comments INFORMATION SOURCE (unrecogn ized section and content) DATE CREATED AUTHOR 12/07/2022 [facility] [place] DATE CREATED AUTHOR AUTHOR'S ORGANIZ ATION 12/22/2023 [facility] FOR RECORDS PERTAINING TO PATIENTS WHO ARE [...] BE BASED ON THE PRIMARY CLINICAL RECORDS. [facility]. provides no warranty or guarantee of the accuracy or completeness of information in this document.
--- NOTE | 2023-12-25 14:29 | ECG_ITS ---
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
--- NOTE | 2023-12-25 14:39 | CT_ITS ---
The [address] [address] Patient Name: SHAQUILLE SMALLS MRN: [id number] date: 1960 Sex: F Assigned Patient Location: ER Current Patient Location: Accession/Order Number: [id number] Exam Date: 12/25/2023 14:50 Report Date: 12/25/2023 16:35 At the request of: ELIJAH KITCHEN Procedure: CT head/brain wo con CT HEAD WITHOUT CONTRAST, 12/25/2023 HISTORY: Dizziness. COMPARISON: None. TECHNIQUE: Noncontrast axial CT images obtained through the head. Reconstructions were obtained in the sagittal and coronal planes. Dose reduction techniques were achieved by using automated exposure control and/or adjustment of mA and/or kV according to patient size and/or use of iterative reconstruction technique. FINDINGS: The paranasal sinuses are clear. Mastoid air cells are clear. Skull base is intact. There are no skull lesions. Extracranial soft tissue structures are unremarkable. Ventricles are normal in size. No hydrocephalus. No mass effect. No shift of midline. No acute hemorrhage. No masses. Florez matter and white matter differentiation is intact. CT/CT head/brain wo con IMPRESSION: Normal CT of the head. Electronically authenticated by: ROOSEVELT AGUILLON Date: 12/25/2023 16:35
[2023-12-25 14:45] LABS: Basophils Absolute Auto 0.1 10^3/uL (0.0-0.1); Basophils Percent Auto 1.2 % (0.2-2.0); Eosinophils Absolute Auto 0.2 10^3/uL (0.0-0.7); Eosinophils Percent Auto 2.6 % (0.9-7.0); Hematocrit 46.4 % (36.0-48.0); Immature Granulocytes Abs Auto 0.02 10^3/uL (0.00-0.03); Immature Granulocytes Pct Auto 0.2 % (0.0-0.5); Lymphocytes Absolute Auto 2.1 10^3/uL (1.2-3.8); Lymphocytes Percent Auto 25.4 % (20.5-60.0); Mean Corpuscular HGB Conc 32.3 g/dL (29.9-35.2); Mean Corpuscular Hemoglobin 28.1 pg (26.7-34.0); Mean Corpuscular Volume 86.9 fL (81.0-99.0); Mean Platelet Volume 9.7 fL (9.5-13.5); Monocytes Absolute Auto 0.5 10^3/uL (0.3-0.8); Monocytes Percent Auto 6.7 % (1.7-12.0); Neutrophils Absolute Auto 5.2 10^3/uL (1.4-6.5); Neutrophils Percent Auto 63.9 % (43.0-75.0); Platelet Count 335 10^3/uL (150-450); Red Blood Count 5.34 10^6/uL (4.20-5.40); Red Cell Distribution Width 13.3 % (11.0-15.0); White Blood Count 8.1 10^3/uL (4.0-11.0)
--- NOTE | 2023-12-25 14:46 | ED.DIZZY1 ---
HPI - Dizziness General Chief Complaint: Dizziness Stated Complaint: DIZINESS Time Seen by Provider: 12/25/23 14:22 Source: patient Mode of arrival: walk-in History of Present Illness HPI Narrative: The patient comes to the ER with almost 4-5 days history of sensation of the room spinning. She denies any weakness any nausea vomiting or headache she also denies any exposure to anybody with viral illness. The patient had no weakness or any difficulty walking she has been doing her regular daily activities since then. 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 No numbness tingling or any weakness in the upper or lower extremities Related Data Home Medications ?Medication ?Instructions ?Recorded ?Confirmed baclofen 10 mg tablet mg 12/25/23 diclofenac sodium 75 mg mg PO 12/25/23 tablet,delayed release Previous Rx's ?Medication ?Instructions ?Recorded meclizine 25 mg tablet 25 mg PO TID PRN dizziness #10 tabs 12/25/23 Allergies Allergy/AdvReac Type Severity Reaction Status Date / Time No Known Drug Allergies Allergy Verified 12/25/23 14:22 Review of Systems ROS Status of ROS 10 or more systems reviewed and unremarkable except as noted in history and below Exam Narrative Exam Narrative: Nurses notes and vital signs reviewed and patient is not hypoxic. General: Well-appearing and in no apparent distress. Skin: Warm, dry, no pallor noted. No rash. Head: Normocephalic, atraumatic. Neck: Supple, non-tender. Eye: Pupils are equal, round and EOMI. No scleral icterus. Ears, Nose, Mouth, and Throat: TM are clear, no nasal mucosal hypertrophy. Oral mucosa is moist, no posterior oropharynx erythema, uvula is mid-line Cardiovascular: Regular Rate and Rhythm without murmur, gallop or rub. Respiratory: No accessory muscle use or respiratory distress. Lungs are clear to auscultation, no wheezing, rales or rhonchi Chest Wall: no tenderness Back: No midline thoracic or lumbar vertebral tenderness. No CVA tenderness Musculoskeletal: normal ROM, no calf or popliteal tenderness, no lower extremity edema/swelling GI: Abdomen is soft, non-distended. Normal bowel sounds. No masses appreciated. No tenderness to palpation. No rebound, guarding, or rigidity noted. Neurological: A&O x4. No cranial nerve dysfunction observed. No truncal ataxia. Moves all extremities. Sensation intact. Psychiatric: Cooperative and interactive. Normal mood and affect. Constitutional Vital Signs, click to edit/add: Last Vital Signs Temp 98.6 F 12/25/23 14:19 Pulse 69 12/25/23 15:20 Resp 21 12/25/23 15:20 BP 174/106 H 12/25/23 14:19 Pulse Ox 94 L 12/25/23 15:20 Course Vital Signs Vital signs: Vital Signs Temperature 98.6 F 12/25/23 14:19 Pulse Rate 113 H 12/25/23 14:19 Respiratory Rate 20 12/25/23 14:19 Blood Pressure 174/106 H 12/25/23 14:19 Pulse Oximetry 98 12/25/23 14:19 Temperature 98.6 F 12/25/23 14:19 Pulse Rate 69 12/25/23 15:20 Respiratory Rate 21 12/25/23 15:20 Blood Pressure 174/106 H 12/25/23 14:19 Pulse Oximetry 94 L 12/25/23 15:20 MDM - Dizziness MDM Narrative Medical decision making narrative: EKG showing sinus rhythm with a heart rate of [address] elevation or depression CBC chemistry showed no acute significant pathology except for mild hypokalemia CAT scan of the head showed no acute pathology as well The patient was started on hydration as well as potassium replaced and she was given meclizine She was instructed on rest and according to her usually her blood pressure although elevated right now is not usually a problem that she have when she visits her primary care but she will follow-up with her primary care within the week for further evaluation The patient is to follow up with primary care physician in next 2-3 days or to return to the emergency department should any of the signs or symptoms worsen or new symptoms develop. The patient agrees with the following Diagnosis and Treatment plan and the patient will be discharged home. Lab Data Labs: Lab Results 12/25/23 Range/Units 14:30 WBC 8.1 (4.0-11.0) 10^3/uL RBC 5.34 (4.20-5.40) 10^6/uL Hgb 15.0 (12.0-16.0) g/dL Hct 46.4 (36.0-48.0) % MCV 86.9 (81.0-99.0) fL MCH 28.1 (26.7-34.0) pg MCHC 32.3 (29.9-35.2) g/dL RDW 13.3 (11.0-15.0) % Plt Count 335 (150-450) 10^3/uL MPV 9.7 (9.5-13.5) fL Neut % (Auto) 63.9 (43.0-75.0) % Lymph % (Auto) 25.4 (20.5-60.0) % Hamblen % (Auto) 6.7 (1.7-12.0) % Eos % (Auto) 2.6 (0.9-7.0) % Baso % (Auto) 1.2 (0.2-2.0) % Neut # (Auto) 5.2 (1.4-6.5) 10^3/uL Lymph # (Auto) 2.1 (1.2-3.8) 10^3/uL Hamblen # (Auto) 0.5 (0.3-0.8) 10^3/uL Eos # (Auto) 0.2 (0.0-0.7) 10^3/uL Baso # (Auto) 0.1 (0.0-0.1) 10^3/uL Abs Immat Gran (auto) 0.02 (0.00-0.03) 10^3/uL Imm/Tot Granulo (auto) 0.2 (0.0-0.5) % Sodium 140 (136-145) mmol/L Potassium 3.4 L (3.5-5.1) mmol/L Chloride 104 (98-107) mmol/L Carbon Dioxide 24.8 (21.0-32.0) mmol/L Anion Gap 14.6 BUN 19.0 H (7.0-18.0) mg/dL Creatinine 0.97 (0.55-1.02) mg/dL Est GFR ( Amer) >60 (>=60) Est GFR (Non-Af Amer) 58 L (>=60) BUN/Creatinine Ratio 19.6 Glucose 139 H (74-106) mg/dL Calcium 8.8 (8.5-10.1) mg/dL Total Bilirubin 0.3 (0.2-1.0) mg/dL AST 12 L (15-37) U/L ALT 20 (14-59) U/L Alkaline Phosphatase 79 (46-116) U/L Troponin I High Sens 5.0 (4.0-51.3) pg/mL Total Protein 7.1 (6.4-8.2) g/dL Albumin 3.4 (3.4-5.0) g/dL Globulin 3.7 g/dL Albumin/Globulin Ratio 0.9 Discharge Plan Discharge Stand Alone Forms: Portal Instructions Chief Complaint: Dizziness Clinical Impression: Vertigo Patient Disposition: Home, Self-Care Time of Disposition Decision: 15:40 Condition: Good Prescriptions / Home Meds: New meclizine 25 mg tablet 25 mg PO TID PRN (Reason: dizziness) Qty: 10 0RF No Action baclofen 10 mg tablet diclofenac sodium 75 mg tablet,delayed release (DR/EC) PO Print Language: Greenlandic Instructions: Vertigo (ED) Referrals: Stephan Souza MD [Primary Care Provider] - 1 week
[2023-12-25] MEDS: MECLIZINE HCL 12.5 MG TABLET 25 MG PO (14:57)
[2023-12-25 15:04] LABS: Alanine Aminotransferase 20 U/L (14-59); Albumin Globulin Ratio 0.9; Albumin Level 3.4 g/dL (3.4-5.0); Alkaline Phosphatase 79 U/L (46-116); Anion Gap 14.6; Aspartate Amino Transferase 12 U/L (15-37); BUN Creatinine Ratio 19.6; Bilirubin Total 0.3 mg/dL (0.2-1.0); Calcium 8.8 mg/dL (8.5-10.1); Carbon Dioxide 24.8 mmol/L (21.0-32.0); Chloride 104 mmol/L (98-107); Estimated GFR (African America >60 (>=60); Estimated GFR (Non-African Ame 58 (>=60); Globulin 3.7 g/dL; Glucose 139 mg/dL (74-106); Potassium 3.4 mmol/L (3.5-5.1); Sodium 140 mmol/L (136-145); Total Protein 7.1 g/dL (6.4-8.2)
[2023-12-25] MEDS: 0.9 % SODIUM CHLORIDE 1,000 ML 500 ML IV (15:25)
[2023-12-25] MEDS: POTASSIUM BICARBONATE/CIT 25 MEQ TABLET EFF PO (15:25)
== END 2023-12-25 15:57 | disposition home or self-care (01) ==
PROVIDERS: Emergency Provider Emergency Medicine; PCP Family Medicine
DX: R42 Dizziness and giddiness (principal); E87.6 Hypokalemia; Z79.899 Other long term (current) drug therapy
CPT/HCPCS: 36415; 70450; 80053; 84484; 85025; 93005; 99285

== ENCOUNTER 2024-07-25 10:11 | Outpatient (OUT) | payer BC, SELFPAY ==
--- OUTSIDE RECORDS SUMMARY | 2024-07-25 10:25 | XMS_ITS | CCD ---
Author Organization [facility] Care Team Providers Care Admitting Counselor Name Role Phone HORTON ., DR GIANNA [...] HORTON ., DR GIANNA Benitez Admitting Unavailable OHRTON ., DR GIANNA Benitez Attending Unavailable HOY [...] CACERES Attending Unavailable Anne-Marie Marin Referring Unavailable Allergies Allergy Classification Reported Allergen(s) Allergy Type Date of Onset Reaction(s) Facility (1 source) No Known Medication Allergies; Translations: [No Known Medication Allergies] Propensity to adverse reactions (disorder) [facility] Repository Problems Active Problems Problem Classification Problem Date [...] Facil ity Physician Referralon 024 Physician Referral [id number] 303 [id number]#1.00T IFF Normal [facility] Physician Referralon 024 Physician Referral [id number] 302 [id number]#1.00T IFF Normal [facility] Covid-19 PCR ([facility])on SARS-CoV-2 (COVID-19) RNA JAIMIE+probe Ql (Unsp spec) Not detected Normal NOT DETECTED [facility] Comment on above: Result [...] for this test is supported by the [place] of Health and Human Service's declaration that [...] longer be used). Performed By: #### [facility] #### [facility] [address] [place] [address] Dr. Joss De La Rosa CBC AUTO DIFFon 12-13-2021 BASO # 0.0 103/ul Normal 0.0-0.1 [facility] Comment on above: Performed By: #### C BC #### [facility] [address] [place] [address] Dr. Joss De La Rosa Basophils/100 WBC (Bld) 0.9 % Normal 0.2-2.0 [facility] Comment on above: Performed By: #### C BC #### [facility] [address] [place] [address] Dr. Joss De La Rosa EO # 0.2 103/ul Normal 0.0-0.7 [facility] Comment on above: Performed By: #### C BC #### [facility] [address] [place] [address] Dr. Joss De La Rosa Eosinophils/100 WBC (Bld) 4.4 % Normal 0.9-7.0 [facility] Comment on above: Performed By: #### C BC #### [facility] [address] [place] [address] Dr. Joss De La Rosa Erythrocyte distribution width (RBC) [Ratio] 13.1 % Normal 11.0-15.0 [facility] Comment on above: Performed By: #### C BC #### [facility] [address] [place] [address] Dr. Joss De La Rosa Hematocrit (Bld) [Volume fraction] 44.9 % Normal 36.0-48.0 [facility] Comment on above: Performed By: #### C BC #### [facility] [address] [place] [address] Dr. Joss De La Rosa Hemoglobin (Bld) [Mass/Vol] 14.6 g/dL Normal 12.0-16.0 [facility] Comment on above: Performed By: #### C BC #### [facility] [address] [place] [address] Dr. Joss De La Rosa IG # 0.00 10e3/ul Normal 0.00-0.03 [facility] Comment on above: Performed By: #### C BC #### [facility] [address] [place] [address] Dr. Joss De La Rosa IG % 0.0 % Normal 0.0-0.5 [facility] Comment on above: Performed By: #### C BC #### [facility] [address] [place] [address] Dr. Joss De La Rosa LYMPH # 1.6 103/ul Normal 1.2-3.8 [facility] Comment on above: Performed By: #### C BC #### [facility] [address] [place] [address] Dr. Joss De La Rosa Lymphocytes/100 WBC (Bld) 37.1 % Normal 20.5-60.0 [facility] Comment on above: Performed By: #### C BC #### [facility] [address] [place] [address] Dr. Joss De La Rosa MANUAL DIFF REQ NO Normal [facility] Comment on above: Performed By: #### C BC #### [facility] [address] [place] [address] Dr. Joss De La Rosa MCH (RBC) [Entitic mass] 27.8 pg Normal 26.7-34.0 [facility] Comment on above: Performed By: #### C BC #### [facility] [address] [place] [address] Dr. Joss De La Rosa MCHC (RBC) [Mass/Vol] 32.5 g/dL Normal 29.9-35.2 [facility] Comment on above: Performed By: #### C BC #### [facility] [address] [place] [address] Dr. Joss De La Rosa MCV (RBC) [Entitic vol] 85.5 fL Normal 81.0-99.0 [facility] Comment on above: Performed By: #### C BC #### [facility] [address] [place] [address] Dr. Joss De La Rosa MONO # 0.5 103/ul Normal 0.3-0.8 [facility] Comment on above: Performed By: #### C BC #### [facility] [address] [place] [address] Dr. Joss De La Rosa Monocytes/100 WBC (Bld) 11.8 % Normal 1.7-12.0 [facility] Comment on above: Performed By: #### C BC #### [facility] [address] [place] [address] Dr. Joss De La Rosa NEUT # 2.0 103/ul Normal 1.4-6.5 [facility] Comment on above: Performed By: #### C BC #### [facility] [address] [place] [address] Dr. Joss De La Rosa Neutrophils/100 WBC (Bld) 45.8 % Normal 43.0-75.0 [facility] Comment on above: Performed By: #### C BC #### [facility] [address] [place] [address] Dr. Joss De La Rosa Platelet mean volume (Bld) [Entitic vol] 10.2 fL Normal 9.5-13.5 [facility] Comment on above: Performed By: #### C BC #### [facility] [address] [place] [address] Dr. Joss De La Rosa PLT 237 103/ul Normal 150-450 [facility] Comment on above: Performed By: #### C BC #### [facility] [address] [place] [address] Dr. Joss De La Rosa RBC 5.25 106/ul Normal 4.20-5.40 [facility] Comment on above: Performed By: #### C BC #### [facility] [address] [place] [address] Dr. Joss De La Rosa WBC 4.3 103/ul Normal 4.0-11.0 [facility] Comment on above: Performed By: #### C BC #### [facility] [address] [place] [address] Dr. Joss De La Rosa Covid-19 PCR ([facility])on 12-01 SARS-CoV-2 (COVID-19) RNA JAIMIE+probe Ql (Unsp spec) Not detected Normal NOT DETECTED [facility] Comment on above: Result Comment: This test is not yet approved or cleared by the [place] FDA. When there are no FDA-approved or cleared tests available, and other criteria are met, FDA can make tests available under an emergency access mechanism called an Emergency Use Authorization (EUA). The EUA for this test is supported by the [employer] of Health and Human Service's (HHS's) declaration [...] consistent with SARS-CoV-2. Performed By: #### C VDTBH #### [facility] [address] [place] [address] Dr. Joss De La Rosa INFLUENZA A AND B AGon 12-13 INFLUBNEG SEE BELOW Normal [facility] Comment on above: Result Comment: Nega tive for Flu B protein antigen. Infection due to Flu B cannot be ruled out. Flu B antigen in the sample may be below the detection limit of the test. Performed By: #### I NFLUAB #### [facility] [address] [place] [address] Dr. Joss De La Rosa INFLUENZA A AG Positive Abnormal NEGATIVE SEE COMMENT [facility] Comment on above: Performed By: #### I NFLUAB #### [facility] [address] [place] [address] Dr. Joss De La Rosa INFLUENZA B AG Negative Normal NEGATIVE SEE COMMENT [facility] Comment on above: Performed By: #### I NFLUAB #### [facility] [address] [place] [address] Dr. Joss De La Rosa INFLUPOSH SEE BELOW Normal [facility] Comment on above: Result Comment: NOTE : Live attenuated influenzae vaccine viruses can cause a positive result for a rapid influenza diagnostic test if administered up to 7 days prior to rapid testing. Performed By: #### I NFLUAB #### [facility] [address] [place] [address] Dr. Joss De La Rosa INTERNAL CONTROLS Within Normal Limits Normal Wi thin Normal Limits [facility] Comment on above: Performed By: #### I NFLUAB #### [facility] [address] [place] [address] Dr. Joss De La Rosa PROF 14(COMP METB)on 022 Albumin [Mass/Vol] 3.3 g/dL Critically low 3.5-5.0 Th e [facility] Comment on above: Performed By: #### C MP #### [facility] [address] [place] [address] Dr. Joss De La Rosa Albumin/Globulin [Mass ratio] 1.0 {ratio} Normal [facility] Comment on above: Performed By: #### C MP #### [facility] [address] [place] [address] Dr. Joss De La Rosa ALP [Catalytic activity/Vol] 69 U/L Normal 38-126 [facility] Comment on above: Performed By: #### C MP #### [facility] [address] [place] [address] Dr. Joss De La Rosa ALT [Catalytic activity/Vol] 26 U/L Normal 9-52 [facility] Comment on above: Performed By: #### C MP #### [facility] [address] [place] [address] Dr. Joss De La Rosa Anion gap [Moles/Vol] 12.0 mmol/L Normal [facility] Comment on above: Performed By: #### C MP #### [facility] [address] [place] [address] Dr. Joss De La Rosa AST [Catalytic activity/Vol] 15 U/L Normal 14-36 [facility] Comment on above: Performed By: #### C MP #### [facility] [address] [address] [address] Joss De La Rosa Bilirubin [Mass/Vol] 0.2 mg/dL Normal 0.2-1.3 [facility] Comment on above: Performed By: #### C MP #### [facility] [address] [address] [address] Joss De La Rosa Calcium [Mass/Vol] 8.3 mg/dL Critically low 8.4-10.2 Th [facility] Comment on above: Performed By: #### C MP #### [facility] [address] [place] [address] Dr. Joss De La Rosa Chloride [Moles/Vol] 102 mmol/L Normal 98-107 [facility] Comment on above: Performed By: #### C MP #### [facility] [address] [place] [address] Dr. Joss De La Rosa CO2 [Moles/Vol] 27.4 mmol/L Normal 22.0-30.0 [facility] Comment on above: Performed By: #### C MP #### [facility] [address] [place] [address] Dr. Joss De La Rosa Creatinine [Mass/Vol] 0.97 mg/dL Normal 0.52-1.04 [facility] Comment on above: Performed By: #### C MP #### [facility] [address] [address] [address] Joss De La Rosa EGFR-AF LEBANESE >60 Normal >=60 [facility] Comment on above: Performed By: #### C MP #### [facility] [address] [place] [address] Dr. Joss De La Rosa EGFR-NON AF LEBANESE 59 mL/min/1.73m2 Critically low >=60 [facility] Comment on above: Performed By: #### C MP #### [facility] [address] [address] [address] Jsos De La Rosa Globulin (S) [Mass/Vol] 3.4 g/dL Normal [facility] Comment on above: Performed By: #### C MP #### [facility] [address] [address] [address] Joss De La Rosa Glucose [Mass/Vol] 105 mg/dL Normal 74-106 [facility] Comment on above: Performed By: #### C MP #### [facility] [address] [address] [address] Joss De La Rosa Potassium [Moles/Vol] 3.4 mmol/L Normal 3.4-5.0 [facility] Comment on above: Performed By: #### C MP #### [facility] [address] [address] [address] Joss De La Rosa Protein [Mass/Vol] 6.7 g/dL Normal 6.1-8.2 [facility] Comment on above: Performed By: #### C MP #### [facility] [address] [address] [address] Joss De La Rosa Sodium [Moles/Vol] 138 mmol/L Normal 137-145 [facility] Comment on above: Performed By: #### C MP #### [facility] [address] [address] [address] Joss De La Rosa Urea nitrogen [Mass/Vol] 15.0 mg/dL Normal 7.0-17.0 [facility] Comment on above: Performed By: #### C MP #### [facility] [address] [address] [address] Joss De La Rosa Urea nitrogen/Creatinin e [Mass ratio] 15.5 mg/mg Normal [facility] Comment on above: Performed By: #### C MP #### [facility] [address] [address] [address] Joss De La Rosa XR CHEST 1 Von 12-13-2021 XR CHEST 1 V EXAM: XR CHEST 1 V HISTORY: COUGH COMPARISON: X-ray performed 6 image . TECHNIQUE: AP portable upright view of the chest is obtained. FINDINGS: The cardiomediastinal silhouette is nonenlarged. Pulmonary vascular markings are within normal limits. There is no focal airspace consolidation. The costophrenic angles are clear. No pneumothorax. The osseous structures appear grossly intact. IMPRESSION: No acute cardiopulmonary process. Electronically authenticated by: ANTONY GRIGSBY Date: 2021-12-13 03:22 Normal [facility] Encounters Encounter Date Encounter Type Care Provider Facility Start: 02-01-2024 ambulatory Sanjiv CACERES Facility :[facility] Start: 01-24-2024 ambulatory Sanjiv CACERES Facility:[facility] [place] Start: 12-12-2023 ambulatory Sanjiv CACERES Facility:[facility] Start: 12-01-2022 End: 12-01-[address] ANNE-MARIE [...] End: 12-13-[address] ANNE-MARIE MARIN . Facility:[facility] Payers Date Payer Category Payer Unknown [id number] 1960 Unknown [id number] .16.84 [id number] 1960 Unknown [id number] .16.84 [id number] 1960 Unknown [id number] .16.84 [id number] 1960 Unknown [id number] .16.84 [id number] 1960 Unknown [id number] 2.16.84 [id number] 1960 Unknown [id number] 2.16.84 [id number] 1960 Unknown [id number] 2.16.84 [id number] 1960 Unknown [id number] 2.16.84 [id number] 1960 Unknown [id number] 2.16.8 [id number] 1960 Unknown [id number] 2.16.8 [id number] 1959 Unknown [id number] Consultation note 05-27-2022 Note Date & Type [...] be more active with working with the [employer] animals, work and physical activity at home. [...] up in the office post procedure. [facility] Consultation note 05-27-2022 Note Date [...] hopes of completing the rhizotomy series. [facility] Consultation note 04-13-2022 Note Date [...] The patient, unfortunately, was denied treatment by [place], stating that I was not participating in [...] Intact in the upper extremity at 5/5. Bender Helper strength is maintained. Interossei are maintained. NEUROLOGICALLY: [...] like to proceed. CC: Anne-Marie Marin M.D. [facility] Signed and Approved by: DR GIANNA HORTON . 04/20/2022 09:28:00 [facility] Consultation note 12-31-2021 Note Date [...] followed up in the office post procedure. IF Signed and Approved by: EDNA TELLEZ . 01/07/2022 16:20:00 [facility] Summary Purpose Family History No Family History Records FoundNo Family History Records Found Advance Directives No Advanced Directives Records FoundNo Advanced Directives Records Found Additional Source Comments INFORMATION SOURCE (unrecogn ized section and content) DATE CREATED AUTHOR 12/07/2022 [facility] DATE CREATED AUTHOR AUTHOR'S ORGANIZ ATION 02/01/2024 [facility] FOR RECORDS PERTAINING TO PATIENTS WHO ARE [...] BE BASED ON THE PRIMARY CLINICAL RECORDS. [employer] provides no warranty or guarantee of the accuracy or completeness of information in this document.
--- NOTE | 2024-07-25 10:28 | XR_ITS ---
The [address] [address] Patient Name: SHAQUILLE SMALLS MRN: [id number] date: 1960 Sex: F Assigned Patient Location: [facility] Current Patient Location: Accession/Order Number: [id number] Exam Date: 07/25/2024 10:20 Report Date: 07/29/2024 07:13 At the request of: ANNE-MARIE MARIN Procedure: XR knee LT 3V PROCEDURE: XR knee LT 3V HISTORY: Knee Sprain [id number] COMPARISON: None. FINDINGS: BONES:Mild narrowing of the medial joint space and small periarticular degenerative osteophytes. SOFT TISSUES:No visible soft tissue swelling. EFFUSION:None visible. OTHER: Negative. XR/XR knee LT 3V IMPRESSION: 1. No acute bone abnormality. 2. Mild degenerative joint disease. Electronically authenticated by: SARAH PENDLETON Date: 07/29/2024 07:13
== END 2024-07-25 10:12 | disposition home or self-care (01) ==
LOC: RAD 10:12
PROVIDERS: PCP Family Medicine; Visit Provider Family Medicine
DX: S83.92XA Sprain of unspecified site of left knee, initial encounter (principal)
CPT/HCPCS: 73562

== ENCOUNTER 2024-08-07 07:38 | Outpatient (OUT) | payer BC, SELFPAY ==
--- OUTSIDE RECORDS SUMMARY | 2024-08-07 07:40 | XMS_ITS | CCD ---
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 Name Role Phone HORTON ., DR GIANNA [...] Medication Allergies] Propensity to adverse reactions (disorder) [facility] Repository Problems Active Problems Problem [...] Facil ity Physician Referralon 024 Physician Referral [phone] 303 [id number]#1.00T IFF Normal [facility] Physician Referralon 024 Physician Referral [id number] 302 [id number] IFF Normal [facility] Covid-19 PCR ([facility])on SARS-CoV-2 (COVID-19) RNA JAIMIE+probe Ql (Unsp spec) Not detected Normal NOT DETECTED [facility] Comment on above: Result Comment: When [...] for this test is supported by the [place] of Health and Human Service's declaration that [...] longer be used). Performed By: #### [facility] #### [facility] [address] [place] [address] Dr. Joss De La Rosa CBC AUTO DIFFon 12-13-2021 BASO # 0.0 103/ul Normal 0.0-0.1 [facility] Comment on above: Performed By: #### C BC #### [facility] [address] [place] [address] Dr. Joss De La Rosa Basophils/100 WBC (Bld) 0.9 % Normal 0.2-2.0 [facility] Comment on above: Performed By: #### C BC #### [facility] [address] [place] [address] Dr. Joss De La Rosa EO # 0.2 103/ul Normal 0.0-0.7 [facility] Comment on above: Performed By: #### C BC #### [facility] [address] [place] [address] Dr. Joss De La Rosa Eosinophils/100 WBC (Bld) 4.4 % Normal 0.9-7.0 [facility] Comment on above: Performed By: #### C BC #### [facility] [address] [place] [address] Dr. Joss De La Rosa Erythrocyte distribution width (RBC) [Ratio] 13.1 % Normal 11.0-15.0 [facility] Comment on above: Performed By: #### C BC #### [facility] [address] [place] [address] Dr. Joss De La Rosa Hematocrit (Bld) [Volume fraction] 44.9 % Normal 36.0-48.0 [facility] Comment on above: Performed By: #### C BC #### [facility] [address] [place] [address] Dr. Joss De La Rosa Hemoglobin (Bld) [Mass/Vol] 14.6 g/dL Normal 12.0-16.0 [facility] Comment on above: Performed By: #### C BC #### [facility] [address] [place] [address] Dr. Joss De La Rosa IG # 0.00 10e3/ul Normal 0.00-0.03 [facility] Comment on above: Performed By: #### C BC #### [facility] [address] [place] [address] Dr. Joss De La Rosa IG % 0.0 % Normal 0.0-0.5 [facility] Comment on above: Performed By: #### C BC #### [facility] [address] [place] [address] Dr. Joss De La Rosa LYMPH # 1.6 103/ul Normal 1.2-3.8 [facility] Comment on above: Performed By: #### C BC #### [facility] [address] [place] [address] Dr. Joss De La Rosa Lymphocytes/100 WBC (Bld) 37.1 % Normal 20.5-60.0 [facility] Comment on above: Performed By: #### C BC #### [facility] [address] [place] [address] Dr. Joss De La Rosa MANUAL DIFF REQ NO Normal [facility] Comment on above: Performed By: #### C BC #### [facility] [address] [place] [address] Dr. Joss De La Rosa MCH (RBC) [Entitic mass] 27.8 pg Normal 26.7-34.0 [facility] Comment on above: Performed By: #### C BC #### [facility] [address] [place] [address] Dr. Joss De La Rosa MCHC (RBC) [Mass/Vol] 32.5 g/dL Normal 29.9-35.2 [facility] Comment on above: Performed By: #### C BC #### [facility] [address] [place] [address] Dr. Joss De La Rosa MCV (RBC) [Entitic vol] 85.5 fL Normal 81.0-99.0 [facility] Comment on above: Performed By: #### C BC #### [facility] [address] [place] [address] Dr. Joss De La Rosa MONO # 0.5 103/ul Normal 0.3-0.8 [facility] Comment on above: Performed By: #### C BC #### [facility] [address] [place] [address] Dr. Joss De La Rosa Monocytes/100 WBC (Bld) 11.8 % Normal 1.7-12.0 [facility] Comment on above: Performed By: #### C BC #### [facility] [address] [place] [address] Dr. Joss De La Rosa NEUT # 2.0 103/ul Normal 1.4-6.5 [facility] Comment on above: Performed By: #### C BC #### [facility] [address] [place] [address] Dr. Joss De La Rosa Neutrophils/100 WBC (Bld) 45.8 % Normal 43.0-75.0 [facility] Comment on above: Performed By: #### C BC #### [facility] [address] [place] [address] Dr. Joss De La Rosa Platelet mean volume (Bld) [Entitic vol] 10.2 fL Normal 9.5-13.5 [facility] Comment on above: Performed By: #### C BC #### [facility] [address] [place] [address] Dr. Joss De La Rosa PLT 237 103/ul Normal 150-450 [facility] Comment on above: Performed By: #### C BC #### [facility] [address] [place] [address] Dr. Joss De La Rosa RBC 5.25 106/ul Normal 4.20-5.40 [facility] Comment on above: Performed By: #### C BC #### [facility] [address] [place] [address] Dr. Joss De La Rosa WBC 4.3 103/ul Normal 4.0-11.0 [facility] Comment on above: Performed By: #### C BC #### [facility] [address] [place] [address] Dr. Joss De La Rosa Covid-19 PCR ([facility])on 12-01 SARS-CoV-2 (COVID-19) RNA JAIMIE+probe Ql (Unsp spec) Not detected Normal NOT DETECTED [facility] Comment on above: Result Comment: This test is not yet approved or cleared by the [place] FDA. When there are no FDA-approved or cleared tests available, and other criteria are met, FDA can make tests available under an emergency access mechanism called an Emergency Use Authorization (EUA). The EUA for this test is supported by the [place] of Health and Human Service's (HHS's) declaration [...] SARS-CoV-2. Performed By: #### C VDTBH #### [facility] [address] [place] [address] Dr. Joss De La Rosa INFLUENZA A AND B AGon 12-13 INFLUBNEG SEE BELOW Normal [facility] Comment on above: Result Comment: Nega tive for Flu B protein antigen. Infection due to Flu B cannot be ruled out. Flu B antigen in the sample may be below the detection limit of the test. Performed By: #### I NFLUAB #### [facility] [address] [place] [address] Dr. Joss De La Rosa INFLUENZA A AG Positive Abnormal NEGATIVE SEE COMMENT [facility] Comment on above: Performed By: #### I NFLUAB #### [facility] [address] [place] [address] Dr. Joss De La Rosa INFLUENZA B AG Negative Normal NEGATIVE SEE COMMENT [facility] Comment on above: Performed By: #### I NFLUAB #### [facility] [address] [place] [address] Dr. Joss De La Rosa INFLUPOSH SEE BELOW Normal [facility] Comment on above: Result Comment: NOTE : Live attenuated influenzae vaccine viruses can cause a positive result for a rapid influenza diagnostic test if administered up to 7 days prior to rapid testing. Performed By: #### I NFLUAB #### [facility] [address] [place] [address] Dr. Joss De La Rosa INTERNAL CONTROLS Within Normal Limits Normal Wi thin Normal Limits [facility] Comment on above: Performed By: #### I NFLUAB #### [facility] [address] [place] [address] Dr. Joss De La Rosa PROF 14(COMP METB)on 022 Albumin [Mass/Vol] 3.3 g/dL Critically low 3.5-5.0 [facility] Comment on above: Performed By: #### C MP #### [facility] [address] [place] [address] Dr. Joss De La Rosa Albumin/Globulin [Mass ratio] 1.0 {ratio} Normal [facility] Comment on above: Performed By: #### C MP #### [facility] [address] [place] [address] Dr. Joss De La Rosa ALP [Catalytic activity/Vol] 69 U/L Normal 38-126 [facility] Comment on above: Performed By: #### C MP #### [facility] [address] [place] [address] Dr. Joss De La Rosa ALT [Catalytic activity/Vol] 26 U/L Normal 9-52 [facility] Comment on above: Performed By: #### C MP #### [facility] [address] [place] [address] Dr. Joss De La Rosa Anion gap [Moles/Vol] 12.0 mmol/L Normal [facility] Comment on above: Performed By: #### C MP #### [facility] [address] [place] [address] Dr. Joss De La Rosa AST [Catalytic activity/Vol] 15 U/L Normal 14-36 [facility] Comment on above: Performed By: #### C MP #### [facility] [address] [address] [address] Joss De La Rosa Bilirubin [Mass/Vol] 0.2 mg/dL Normal 0.2-1.3 [facility] Comment on above: Performed By: #### C MP #### [facility] [address] [address] [address] Joss De La Rosa Calcium [Mass/Vol] 8.3 mg/dL Critically low 8.4-10.2 [facility] Comment on above: Performed By: #### C MP #### [facility] [address] [place] [address] Dr. Joss De La Rosa Chloride [Moles/Vol] 102 mmol/L Normal 98-107 [facility] Comment on above: Performed By: #### C MP #### [facility] [address] [place] [address] Dr. Joss De La Rosa CO2 [Moles/Vol] 27.4 mmol/L Normal 22.0-30.0 [facility] Comment on above: Performed By: #### C MP #### [facility] [address] [place] [address] Dr. Joss De La Rosa Creatinine [Mass/Vol] 0.97 mg/dL Normal 0.52-1.04 [facility] Comment on above: Performed By: #### C MP #### [facility] [address] [address] [address] Joss De La Rosa EGFR-AF HAITIAN >60 Normal >=60 [facility] Comment on above: Performed By: #### C MP #### [facility] [address] [place] [address] Dr. Joss De La Rosa EGFR-NON AF HAITIAN 59 mL/min/1.73m2 Critically low >=60 [facility] Comment on above: Performed By: #### C MP #### [facility] [address] [address] [address] Joss De La Rosa Globulin (S) [Mass/Vol] 3.4 g/dL Normal [facility] Comment on above: Performed By: #### C MP #### [facility] [address] [address] [address] Joss De La Rosa Glucose [Mass/Vol] 105 mg/dL Normal 74-106 [facility] Comment on above: Performed By: #### C MP #### [facility] [address] [address] [address] Joss De La Rosa Potassium [Moles/Vol] 3.4 mmol/L Normal 3.4-5.0 [facility] Comment on above: Performed By: #### C MP #### [facility] [address] [address] [address] Joss De La Rosa Protein [Mass/Vol] 6.7 g/dL Normal 6.1-8.2 [facility] Comment on above: Performed By: #### C MP #### [facility] [address] [address] [address] Joss De La Rosa Sodium [Moles/Vol] 138 mmol/L Normal 137-145 [facility] Comment on above: Performed By: #### C MP #### [facility] [address] [address] [address] Joss De La Rosa Urea nitrogen [Mass/Vol] 15.0 mg/dL Normal 7.0-17.0 [facility] Comment on above: Performed By: #### C MP #### [facility] [address] [address] [address] Joss De La Rosa Urea nitrogen/Creatinin e [Mass ratio] 15.5 mg/mg Normal [facility] Comment on above: Performed By: #### C MP #### [facility] [address] [address] [address] Joss De La Rosa XR CHEST [...] by: ANTONY GRIGSBY Date: 2021-12-13 03:22 Normal [facility] Encounters Encounter Date Encounter Type Care Provider Facility Start: 02-01-2024 ambulatory Snajiv CACERES Facility :[facility] Start: 01-24-2024 ambulatory Sanjiv CACERES Facility:[facility] Start: 12-12-2023 ambulatory Sanjiv CACERES Facility:[facility] [...] Facility:[facility] Payers Date Payer Category Payer Unknown [id number] 1960 Unknown [id number] .16.84 [id number] 1960 Unknown [id number] .16.84 [id number] 1960 Unknown [id number] .16.84 [id number] 1960 Unknown [id number] .16.84 [id number] 1960 Unknown [id number] 2.16.84 [id number] 1960 Unknown [id number] 2.16.84 [id number] 1960 Unknown [id number] 2.16.84 [id number] 1960 Unknown [id number] 2.16.84 [id number] 1960 Unknown [id number] 2.16.8 [id number] 1960 Unknown [id number] 2.16.8 [id number] 1957 Unknown [id number] Consultation note 05-27-2022 Note Date & Type [...] be more active with working with the [employer] animals, work and physical activity at home. [...] up in the office post procedure. [facility] Consultation note 05-27-2022 Note Date & [...] hopes of completing the rhizotomy series. [facility] Consultation note 04-13-2022 Note Date & [...] The patient, unfortunately, was denied treatment by [place], stating that I was not participating in [...] Intact in the upper extremity at 5/5. [employer] strength is maintained. Interossei are maintained. NEUROLOGICALLY: [...] like to proceed. CC: Anne-Marie Marin M.D. [facility] Signed and Approved by: DR GIANNA HORTON . 04/20/2022 09:28:00 [facility] Consultation note 12-31-2021 Note Date & [...] by: EDNA TELLEZ . 01/07/2022 16:20:00 [facility] Summary Purpose Family History No Family History Records FoundNo Family History Records Found Advance Directives No Advanced Directives Records FoundNo Advanced Directives Records Found Additional Source Comments INFORMATION SOURCE (unrecogn ized section and content) DATE CREATED AUTHOR 12/07/2022 [facility] DATE CREATED AUTHOR AUTHOR'S ORGANIZ ATION 02/01/2024 [facility] FOR RECORDS PERTAINING TO PATIENTS WHO [...] BE BASED ON THE PRIMARY CLINICAL RECORDS. [employer] provides no warranty or guarantee of the accuracy or completeness of information in this document.
--- NOTE | 2024-08-07 07:41 | MR_ITS ---
The [address] [address] Patient Name: SHAQUILLE SMALLS MRN: [id number] date: 1960 Sex: F Assigned Patient Location: MRI Current Patient Location: Accession/Order Number: [id number] Exam Date: 08/07/2024 07:50 Report Date: 08/08/2024 10:58 At the request of: ANNE-MARIE MARIN Procedure: MR knee LT wo con HISTORY: Pain in the left knee since hearing and feeling a pop in the knee approximately 6 weeks ago. MR knee LT wo con: 08/07/2024 7:50 AM EST COMPARISON: Radiographs left knee 07/25/2024. TECHNIQUE: Multiplanar, multisequence MRI images of the knee were obtained. FINDINGS: The examination is slightly degraded by decreased wxhdud-oc-rqipb ratio related to the patient's body habitus. JOINT SPACES: There is a small joint effusion. 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 There also appears to be mild thinning of the femoral trochlear cartilage. There appears to be moderate thinning of the cartilage of the weightbearing portion of the medial femoral condyle. There is mild thinning of the cartilage of the posterior aspect of the lateral tibial plateau. The remaining articular cartilage appears grossly within normal limits. LIGAMENTS AND TENDONS: The medial collateral ligament appears within normal limits. The lateral collateral ligament, posterior cruciate ligament, iliotibial band, patellar tendon, and visualized distal quadriceps tendon appear within normal limits. The anterior cruciate ligament appears within normal limits. MENISCI: There is evidence of a radial oblique tear involving the inner margin of the posterior horn medial meniscus as best seen on image 19 of the coronal proton density fat-saturated sequence. There appears to be possible mild fraying of the free edge of the posterior horn of the lateral meniscus. BONES: The bone marrow signal intensity is age appropriate. MUSCLES AND SOFT TISSUES: The visualized musculature appears of normal signal intensity. There is a moderate-sized Whittaker's cyst which appears grossly intact. There is prepatellar soft tissue edema. MR/MR knee LT wo con IMPRESSION: 1. There is a radial oblique tear of the inner margin of the posterior horn medial meniscus. 2. Possible mild fraying of the free edge of the posterior horn lateral meniscus. 3. 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 4. 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 5. Moderate-sized Whittaker's cyst which appears grossly intact. 6. Small joint effusion. Electronically authenticated by: ANNE-MARIE LOZA Date: 08/08/2024 10:58
== END 2024-08-07 07:39 | disposition home or self-care (01) ==
LOC: MRI 07:38
PROVIDERS: PCP Family Medicine; Visit Provider Family Medicine
DX: S83.90XA Sprain of unspecified site of unspecified knee, initial encounter (principal); S83.242A Other tear of medial meniscus, current injury, left knee, initial encounter; M94.262 Chondromalacia, left knee; M71.22 Synovial cyst of popliteal space [Baker], left knee; M25.462 Effusion, left knee
CPT/HCPCS: 73721